=== PATIENT | male | born 2005 | race Caucasian/White ===

== ENCOUNTER 2025-06-11 15:38 | Emergency (ER) | payer SELFPAY ==
[2025-06-11 15:42] VITALS: BP 132/78; PULSE 76; RESP 16; TEMP 36.5; O2SAT 96; BMI 31.6
--- NOTE | 2025-06-11 15:52 | ED.VIS.LOWEX ---
HPI History of Present Illness Chief Complaint: Lower Extremity Injury Narrative Narrative: 20-year-old male who denies significant past medical history presents via EMS with injury to his left knee that he sustained prior to arrival. He was inside the gymnasium playing volleyball. He states he went to jump up and when he landed, heard a pop in his left knee. He now complains of pain mainly on the inner portion of his left knee. He denies hitting his head or loss of consciousness or other injury. He was unable to stand up initially, and now has pain that is worse with movement. He did receive medications/analgesia per squad. He denies other injury. PFSH PFSH Medical History no medical history Home Medications ?Medication ?Instructions ?Recorded ?Last Taken ?Type oxycodone 5 mg tablet 5 mg PO Q6H PRN pain 3 days #12 06/11/25 Unknown Rx tabs Allergy/AdvReac Type Severity Reaction Status Date / Time No Known Allergies Allergy Verified 06/11/25 15:41 Family History no significant family his Surgical History no surgical history Social History Smoking Status: Never smoker ROS ROS ED ROS Narrative Review of systems is positive for left knee pain worse with movement. No hitting of head, no loss of consciousness, no neck pain or other injury. EXAM Physical Exam Narrative Exam Narrative: GCS 15. ABCs intact. Cardiovascular examination reveals a regular rate and rhythm. Lungs are clear to auscultation bilaterally. Abdomen is soft and nontender without guarding or rebound. Awake, alert, oriented, interactive. Focused examination of the left knee shows diffuse tenderness to palpation in the left medial meniscal area. No crepitance or erythema. No noted patellar dislocation. Neurovascular intact distally with palpable dorsalis pedis pulse. Able to wiggle toes. Range of motion of left knee is limited secondary to pain. Able to lift leg off bed, no patellar quadricep deficit palpated. Const Vital Signs: 06/11/25 15:42 06/11/25 16:56 Temperature 97.7 F L 97.7 F L Temperature Source Oral Pulse Rate 76 76 Respiratory Rate 16 16 Blood Pressure 132/78 H 114/73 Blood Pressure Mean 96 86 Pulse Ox 96 96 Oxygen Delivery Method Room Air MDM MDM MDM Narrative Medical decision making narrative: Differential diagnosis includes but not limited to medial meniscal tear versus tibial plateau fracture versus medial collateral ligament tear versus other internal derangement of knee. Patient has already received analgesics and antiemetics per squad. On my individual interpretation of the x-rays of the left knee, there is no evidence of an acute fracture. I reviewed the radiology report which shows no evidence of fracture and confirms my independent interpretation. It does comment on the patella being subluxed or displaced laterally by a few millimeters. There is also a small suprapatellar bursal effusion, no acute fracture. I feel he probably has more of an internal derangement of the knee. I stressed the importance of follow-up with orthopedics. He will be placed in a knee immobilizer and given crutches and analgesics. His father is now at the bedside. He states that he had another son that was playing volleyball and ended up with an ACL tear. He was informed that treatment will be the same with knee immobilizer, crutches, analgesia, ice and elevation and follow-up with orthopedics. Father states that they prefer to be referred to Mehul Pedraza who his other son had seen previously. Disposition is discharged. Patient is in stable condition. History & Record Review Discussion w/independent historian: Patient Radiography X-Ray: Read by ED Physician, Read by Radiologist and No Fracture Diagnostic Testing: Clinical Impression(s) from Imaging Studies Knee X-Ray 06/11/25 15:55 IMPRESSION: The patella appears to be subluxed or displaced laterally by a few mm. There is a small suprapatellar bursa effusion. No fracture is seen. Reading Location: [facility] Discharge Plan Triage Chief Complaint: Lower Extremity Injury ED Provider: Palmer Culver Dx/Rx/DC Orders Clinical Impression: Injury of knee, left, Internal derangement of left knee, Patellar subluxation Instructions: Patella Problems Evaluation, ED Knee Sprain Prescriptions: New oxycodone 5 mg tablet 5 mg PO Q6H PRN (Reason: pain) 3 Days Qty: 12 0RF Primary Care Provider: Анна Navarrete NP Referrals: Mehul Pedraza MD [Med Staff - Active Staff, Orthopedics] - 5-7 Days Анна Navarrete MANNEQUIN MAKER, MANNEQUIN MAKER-C [Primary Care Provider, Medical] Activity Restrictions/Additional Instructions: Use crutches and knee immobilizer until seen by orthopedics. Nonweightbearing on left lower extremity. Continue ice and elevation of left knee for 10 to 15 minutes a few times a day. It is important for you to have your knee reevaluated in 5 to 7 days by orthopedics. Print Language: [place] Disposition Disposition: Home, Self Care
--- NOTE | 2025-06-11 15:55 | RAD_ITS ---
PROCEDURE: KNEE 4 OR MORE VIEWS 06/11/2025 REASON FOR EXAM: TRAUMA Volleyball injury. Patient felt a pop. TECHNIQUE: Procedure Code: RADKN Modality: DX Procedure: KNEE 4 OR MORE VIEWS Laterality: Left COMPARISON: None FINDINGS: The exam is limited due to a brace overlying the knee which obscures the fine osseous structures. Bones: There is normal mineralization of the osseous structures. The patella appears to to be subluxed or displaced laterally by a few mm. Joints: The lateral femorotibial joint and medial femorotibial joints appear to be intact. Effusion: There is a small suprapatellar bursa effusion. Soft tissues: There is mild soft tissue swelling of the knee. RAD/Knee 4 or More Views IMPRESSION: The patella appears to be subluxed or displaced laterally by a few mm. There i s a small suprapatellar bursa effusion. No fracture is seen. Reading Location: [id number]
[2025-06-11 16:56] VITALS: BP 114/73; PULSE 76; RESP 16; TEMP 36.5; O2SAT 96
[2025-06-11 17:16] VITALS: BP 114/73; PULSE 76; RESP 16; TEMP 36.5; O2SAT 96
== END 2025-06-11 17:16 | disposition home or self-care (01) ==
PROVIDERS: Emergency Provider Emergency Medicine; PCP Nurse Practitioner Family; Visit Provider Emergency Medicine
DX: S83.012A Lateral subluxation of left patella, initial encounter (principal); M23.8X2 Other internal derangements of left knee; X50.1XXA Overexertion from prolonged static or awkward postures, initial encounter; Y93.68 Activity, volleyball (beach) (court); Y92.39 Other specified sports and athletic area as the place of occurrence of the external cause
CPT/HCPCS: 73564; 99285; A4216